=== PATIENT | female | born 1945 | race Asian ===

== ENCOUNTER → 2020-07-21 | Outpatient (CLI) | payer MEDICARE, OTHER ==
--- NOTE | 2020-07-21 17:10 | RAD ---
Three view cervical spine radiographs 07/21/2020 CLINICAL HISTORY: Neck pain. AP, lateral and two odontoid digital radiographs of the cervical spine were obtained. There is slight reversal of the normal cervical lordosis. Degenerative changes consisting of varying degrees of disc space narrowing, vertebral endplate sclerosis and mild to moderate anterior and posterior vertebral body osteophyte formation are seen involving the C4-5, C5-6 and C6-7 disc spaces predominantly. Degenerative changes are seen involving the uncovertebral and facet joints throughout the mid and lower cervical disc spaces. No fracture or subluxation of the cervical vertebrae is seen. No prevertebral soft tissue swelling is noted. IMPRESSION: Degenerative changes are seen involving the cervical spine as discussed above. No acute osseous abnormality is seen. Electronically signed by: Toni Ochoa MD (07/21/2020 5:07 PM) [id number]
--- NOTE | 2020-07-21 17:18 | RAD ---
Examination: Frontal view the pelvis and 2 views of the bilateral hips and 2 views of the lumbar spine HISTORY: History of back pain, bilateral hip pain COMPARISON: None available FINDINGS: The lumbar vertebral body heights are maintained. Posterior spinal rods with the bilateral pedicle screws at L4, L5 vertebral levels. Moderate intervertebral disc height loss identified throughout the lumbar spine likely degenerative changes. The bilateral femoral heads within the acetabula. Mild joint space loss identified in the bilateral hip joint likely degenerative changes. IMPRESSION: 1. Moderate degenerative changes lumbar spine. 2. Mild degenerative changes bilateral hip joints. Electronically signed by: Bandar Hurley MD (07/21/2020 5:16 PM) [id number]
== END ==
LOC: RAD 15:59
PROVIDERS: ATTEND Family Medicine
DX: M16.0 Bilateral primary osteoarthritis of hip (principal); M47.812 Spondylosis without myelopathy or radiculopathy, cervical region; M47.816 Spondylosis without myelopathy or radiculopathy, lumbar region
CPT/HCPCS: 72040; 72100; 73521

== ENCOUNTER 2021-10-27 08:29 | Emergency (ER) | payer OTHER ==
[~2021-10-27] VITALS: Ht 154.9 cm; Wt 59.1 kg
[2021-10-27 08:55] VITALS: BP 144/83
--- NOTE | 2021-10-27 08:58 | PHYS DOC ---
General Adult EDM: Chief Complaint: MECHANICAL FALL HPI: HPI: Patient is a 76 year old female who presents with fall and facial laceration. Patient states she tripped and fell last night while she was trying to get to her front door. She had gone to sleep about 7 PM and was awoken when someone knocked on her door. She describes a mechanical fall. Did not have chest pain, shortness of breath. She did strike the left side of her face as she was falling. Comes to the ER this morning complaining of laceration and some orbital swelling. Also some hemorrhage in the eye. She did not have loss of consciousness. No nausea or vomiting. No headaches. No blurry vision or any other acute symptoms since the fall which happened about 12 hours earlier. No neck pain. Review of Systems: Review of Systems: Constitutional: Denies fever or chills Eyes: as documented in HPI HENT: Denies nasal congestion or sore throat Respiratory: Denies cough or shortness of breath Cardiovascular: Denies chest pain or edema GI: Denies abdominal pain, nausea, vomiting, bloody stools or diarrhea : Denies dysuria Musculoskeletal: Denies back pain or joint pain Integument: as documented in HPI Neurologic: Denies headache, focal weakness or sensory changes Endocrine: Denies polyuria or polydipsia Lymphatic: Denies swollen glands Psychiatric: Denies depression or anxiety Physical Exam: PE: Constitutional: Well developed, well nourished, no acute distress, non-toxic appearance HENT: Normocephalic, left orbital ecchymosis and swelling. Swelling about the eyelids as well. Eyes: PERRLA, EOMI, left eye has subconjunctival hemorrhage. Otherwise, normal exam Neck: Normal range of motion, no tenderness, supple Cardiovascular:Heart rate regular rhythm, no murmur Lungs & Thorax: Bilateral breath sounds clear to auscultation Abdomen: Bowel sounds normal, soft, no tenderness Skin: 3 cm laceration over the left eyelid that is through the skin and into subcutaneous tissues. Hemostatic. Back: No tenderness, normal ROM Extremities: No tenderness, no trauma Neurologic: Alert and oriented X 3, normal motor function, normal sensory function, no focal deficits noted. Psychologic: Affect normal EKG: EKG: [] Radiology/Procedures: Radiology/Procedures: Laceration repair: Laceration over the left orbit above the left eyelid. Area is draped and cleansed in usual fashion with saline and Betadine. Local anesthesia is applied with 2% lidocaine without epinephrine. 4 mils total were used. Wound was then cleansed and irrigated with syringe. Normal saline was used. A total of 4 simple interrupted sutures are placed using 4-0 Prolene. Patient tolerated well. Wound was hemostatic. Heart Score: C/O Chest Pain: No Risk Factors: Risk Factors: DM, Current or recent (<one month) smoker, HTN, HLP, family history of CAD, obesity. Risk Scores: Score 0 - 3: 2.5% MACE over next 6 weeks - Discharge Home Score 4 - 6: 20.3% MACE over next 6 weeks - Admit for Clinical Observation Score 7 - 10: 72.7% MACE over next 6 weeks - Early Invasive Strategies Course & Med Decision Making: Course & Med Decision Making Pertinent Labs and Imaging studies reviewed. (See chart for details) ED Summary: Seen and examined as documented above. Has normal steady gait. Fell from standing height. No cervical neck tenderness. Laceration repair comp leted. She is noted to have subconjunctival hemorrhage in the left eye but extraocular movements intact and anterior chamber appears clear. She is given reassurance that this will heal. Recommend she come back to the ER in 5 days have sutures removed. All of her questions were answered prior to discharge home and she was agreeable to this plan of care. Torey Disclaimer: Torey Disclaimer: This electronic medical record was generated, in whole or in part, using a voice recognition dictation system. Departure Departure: Impression: Primary Impression: Laceration of left orbit Disposition: HOME / SELF CARE / HOMELESS Condition: GOOD Referrals: KAYDEN JACKSON MD (PCP) Patient Instructions: Facial Laceration, Oike-ty-Ppoq, Subconjunctival Hemorrhage-Brief Scripts Cephalexin (KEFLEX) 500 Mg Capsule 1 CAP PO TID for 10 Days, #30 CAP Prov: JESSICA OROZCO DO 10/27/21 Ibuprofen (IBUPROFEN) 800 Mg Tablet 800 MG PO TID for 5 Days, #15 TAB Prov: JESSICA OROZCO DO 10/27/21 JESSICA OROZCO DO Oct 27, 2021 08:58
[2021-10-27] MEDS ORDERED: IBUP800T19 PO (09:40)
[2021-10-27] MEDS ORDERED: CEPH500C PO (09:40)
== END 2021-10-27 09:50 | disposition home or self-care (01) ==
LOC: ER 08:29
DX: S05.42XA Penetrating wound of orbit with or without foreign body, left eye, initial encounter (principal); H11.32 Conjunctival hemorrhage, left eye; W01.0XXA Fall on same level from slipping, tripping and stumbling without subsequent striking against object, initial encounter; Y93.89 Activity, other specified; Y92.89 Other specified places as the place of occurrence of the external cause; Y99.8 Other external cause status
CPT/HCPCS: 12013; 99284